=== PATIENT | male | born 1995 | race Caucasian/White ===

== ENCOUNTER 2019-09-04 13:50 | Emergency (ER) | payer OTHER ==
[~2019-09-04] VITALS: Ht 185.4 cm; Wt 67.6 kg
[2019-09-04 15:35] VITALS: BP 102/57
== END 2019-09-04 15:35 | disposition home or self-care (01) ==
LOC: ER 13:50
DX: J93.83 Other pneumothorax (principal); Z88.0 Allergy status to penicillin